=== PATIENT | female | born 2000 | race African-American/Black ===

== ENCOUNTER 2022-05-13 16:20 | Emergency (ER) | payer SELFPAY ==
--- NOTE | 2022-05-13 17:23 | EDPHYS ---
Physician Documentation [facility] Name: Anita Alvarado Age: 21 yrs Sex: Female : 2000 Arrival Date: 05/13/2022 Time: 16:23 Bed 16 Private MD: ED Physician Mega Fitzgerald HPI: 05/13 17:20 This 21 yrs old Black Female presents to ER via Ambulatory with complaints of Foreign snw body In Vagina, InQuicker 1630. 17:20 The patient presents with foreign body x several hours. Onset: The symptoms/episode snw began/occurred gradually. Modifying factors: The symptoms are alleviated by nothing, the symptoms are aggravated by nothing. Severity of symptoms: At their worst the symptoms were moderate. The patient is not sexually active. The patient has not experienced similar symptoms in the past. The patient has not recently seen a physician. 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 - Social history:: Smoking status: Patient denies any tobacco usage or history of. ROS: 17:18 Constitutional: Negative for fever, chills, and weight loss, Eyes: Negative for injury, snw pain, redness, and discharge, ENT: Negative for injury, pain, and discharge, Neck: Negative for injury, pain, and swelling, Cardiovascular: Negative for chest pain, palpitations, and edema, Respiratory: Negative for shortness of breath, cough, wheezing, and pleuritic chest pain, Abdomen/GI: Negative for abdominal pain, nausea, vomiting, diarrhea, and constipation, Back: Negative for injury and pain, : Negative for injury, discharge, and swelling, pt with menstrual cup in vagina MS/Extremity: Negative for injury and deformity, Skin: Negative for injury, rash, and discoloration, Neuro: Negative for headache, weakness, numbness, tingling, and seizure, Psych: Negative for depression, anxiety, suicide ideation, homicidal ideation, and hallucinations. Exam: 17:18 Constitutional: This is a well developed, well nourished patient who is awake, alert, snw and in no acute distress. Head/Face: Normocephalic, atraumatic. Eyes: Pupils equal round and reactive to light, extra-ocular motions intact. Lids and lashes normal. Conjunctiva and sclera are non-icteric and not injected. Cornea within normal limits. Periorbital areas with no swelling, redness, or edema. ENT: Nares patent. No nasal discharge, no septal abnormalities noted. Tympanic membranes are normal and external auditory canals are clear. Oropharynx with no redness, swelling, or masses, exudates, or evidence of obstruction, uvula midline. Mucous membranes moist. Neck: Trachea midline, no thyromegaly or masses palpated, and no cervical lymphadenopathy. Supple, full range of motion without nuchal rigidity, or vertebral point tenderness. No Meningismus. Chest/axilla: Normal chest wall appearance and motion. Nontender with no deformity. No lesions are appreciated. Cardiovascular: Regular rate and rhythm with a normal S1 and S2. No gallops, murmurs, or rubs. Normal PMI, no JVD. No pulse deficits. Respiratory: Lungs have equal breath sounds bilaterally, clear to auscultation and percussion. No rales, rhonchi or wheezes noted. No increased work of breathing, no retractions or nasal flaring. Abdomen/GI: Soft, non-tender, with normal bowel sounds. No distension or tympany. No guarding or rebound. No evidence of tenderness throughout. Back: No spinal tenderness. No costovertebral tenderness. Full range of motion. Pelvic Exam: Normal external genitalia. Speculum exam with closed cervical os, no discharge. Menses, pt used a menstral cup and it became stuck. Normal uterus, pt has not ever had intercourse Skin: Warm, dry with normal turgor. Normal color with no rashes, no lesions, and no evidence of cellulitis. MS/ Extremity: Pulses equal, no cyanosis. Neurovascular intact. Full, normal range of motion. Neuro: Awake and alert, GCS 15, oriented to person, place, time, and situation. Cranial nerves II-XII grossly intact. Motor strength 5/5 in all extremities. Sensory grossly intact. Cerebellar exam normal. Normal gait. Psych: Awake, alert, with orientation to person, place and time. Behavior, mood, and affect are within normal limits. Vital Signs: 16:41 BP 141 / 79; Pulse 87; Resp 16 S; Temp 97.5(TE); Pulse Ox 98% on R/A; Weight 56.7 kg aa5 (R); Height 5 ft. 1 in. (154.94 cm) (R); 16:41 Body Mass Index 23.62 (56.70 kg, 154.94 cm) aa5 MDM: 16:33 Patient medically screened. snw 17:21 Data reviewed: vital signs, nurses notes. Data interpreted: Pulse oximetry: on room air snw is 98 %. Interpretation: normal. Counseling: I had a detailed discussion with the patient and/or guardian regarding: the historical points, exam findings, and any diagnostic results supporting the discharge/admit diagnosis, the presence of at least one elevated blood pressure reading (>120/80) during this emergency department visit, the need for outpatient follow up, to return to the emergency department if symptoms worsen or persist or if there are any questions or concerns that arise at home. Response to treatment: the patient's symptoms have markedly improved after treatment. Administered Medications: No medications were administered Disposition: 05/14 11:17 Co-signature as Attending Physician, Mega Fitzgerald DO I agree with the assessment and ms3 plan of care. Attestation: The patient's history, exam findings, diagnostics, and a summary of any interventions or procedures was reviewed in detail with Lavonne POTTER. Disposition Summary: 05/13/22 17:22 Discharge Ordered Location: Home snw Condition: Stable snw Diagnosis - Foreign body in vulva and vagina snw Followup: snw - With: Emergency Department - When: As needed - Reason: Worsening of condition Followup: snw - With: Private Physician - When: As needed - Reason: Recheck today's complaints, Continuance of care, Re-evaluation by your physician Discharge Instructions: - Discharge Summary Sheet snw - Vaginal Foreign Body, [id number] snw Forms: - Medication Reconciliation Form snw - Thank You Letter snw - Antibiotic Education snw - Prescription Opioid Use snw Signatures: Lavonne Galvin FNP-C FNP-Csnw Afia Barlow, RN RN aa5 Mega Fitzgerald DO DO ms3
--- NOTE | 2022-05-13 17:23 | ER ---
Nurse's Notes [facility] Name: Anita Alvarado Age: 21 yrs Sex: Female : 2000 Arrival Date: 05/13/2022 Time: 16:23 Bed 16 Private MD: Diagnosis: Foreign body in vulva and vagina Presentation: 05/13 16:41 Chief complaint: Patient states: Unable to remove Menstrual cup from vagina, pt states aa5 "the cup kind of tilted so I am not able to take it out". Pt denies pain. Coronavirus screen: At this time, the client does not indicate any symptoms associated with coronavirus-19. Ebola Screen: No symptoms or risks identified at this time. Initial Sepsis Screen: Does the patient meet any 2 criteria? No. Patient's initial sepsis screen is negative. Does the patient have a suspected source of infection? No. Patient's initial sepsis screen is negative. Risk Assessment: Do you want to hurt yourself or someone else? Patient reports no desire to harm self or others. Onset of symptoms was April 2022. 16:41 Acuity: TONY 4 aa5 16:41 Method Of Arrival: Ambulatory aa5 Triage Assessment: 17:30 General: Appears in no apparent distress. Behavior is calm, cooperative. 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 - Social history:: Smoking status: Patient denies any tobacco usage or history of. Screenin:55 Abuse screen: Denies threats or abuse. Denies injuries from another. Nutritional iw screening: No deficits noted. Tuberculosis screening: No symptoms or risk factors identified. Fall Risk None identified. Assessment: 17:30 General: Appears in no apparent distress. comfortable. Pain: Denies pain. Neuro: Level iw of Consciousness is awake, alert, obeys commands, Oriented to person, place, time, situation, Moves all extremities. Full function. Cardiovascular: Capillary refill < 3 seconds in bilateral fingers Patient's skin is warm and dry. Respiratory: Respiratory effort is even, unlabored, Respiratory pattern is regular, symmetrical. Derm: Skin is intact, is healthy with good turgor. Musculoskeletal: Range of motion: intact in all extremities. Vital Signs: 16:41 BP 141 / 79; Pulse 87; Resp 16 S; Temp 97.5(TE); Pulse Ox 98% on R/A; Weight 56.7 kg aa5 (R); Height 5 ft. 1 in. (154.94 cm) (R); 16:41 Body Mass Index 23.62 (56.70 kg, 154.94 cm) aa5 ED Course: 16:23 Patient arrived in ED. as 16:28 Lavonne Galvin FNP-C is PHCP. snw 16:28 Mega Fitzgerald DO is Attending Physician. snw 16:40 Arm band placed on. aa5 16:42 Triage completed. aa5 17:30 Patient has correct armband on for positive identification. iw 17:55 Saira Lao, RN is Primary Nurse. iw 17:55 Assist provider with foreign body removal of menstrual cup from vagina. Patient did not iw have IV access during this emergency room visit. Administered Medications: No medications were administered Medication: 17:30 VIS not applicable for this client. iw Outcome: 17:22 Discharge ordered by MD. snw 17:55 Discharged to home ambulatory. iw 17:55 Condition: good 17:55 Discharge instructions given to patient, Instructed on discharge instructions, follow up and referral plans. Demonstrated understanding of instructions, follow-up care. 17:56 Patient left the ED. iw Signatures: Lavonne Galvin FNP-C SENIOR SYSTEM OPERATOR-Csnw Malinda Campbell as Saira Lao, ULI MCNALLY iw Afia Barlow RN RN aa5 Corrections: (The following items were deleted from the chart) 05/14 07:11 08 17:55 No provider procedures requiring assistance completed. iw iw
[2022-05-13 19:22] VITALS: BP 141/79; TEMP 97.5; O2SAT 98
== END 2022-05-13 17:56 | disposition home or self-care (01) ==
LOC: ER 16:20
DX: T19.2XXA Foreign body in vulva and vagina, initial encounter (principal)
CPT/HCPCS: 99283

== ENCOUNTER 2024-11-02 01:05 | Emergency (ER) | payer OTHER, SELFPAY ==
--- OUTSIDE RECORDS SUMMARY | 2024-11-02 01:07 | XMS REPORT | Continuity of Care Document ---
Author Name Unknown Address [address] [facility] [address] th[address] Address [address] [facility] 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 Ordering Clinician Indication Dosage Frequency Signature (SIG) Comments Components Source TAKE 1 TABLET TWICE DAILY WITH FOOD. 06-14 00:00: 00 Yes [id number] [place] Angela Immunizations Ordered Immunization Name Filled Immunization Name Date Status Comments Source Hep B, adult Hep B, adult 2022-04-16 00:00:00 Leonides Angela MMR MMR 2022-01-14 00:00:00 Leonides Angela meningococcal MCV4P meningococcal MCV4P 00:00:00 Leonides Angela Hep B, adult Hep B, adult 2021-10-09 00:00:00 Completed [place]on Angela Tdap Tdap 2021-09-14 00:00:00 Leonides Angela Hep B, adolescent or ped Hep B, adolescent or ped 2021-09-14 00:00:00 Leonides Angela Vital Signs Vital Name Observation Time Observation Value Comments S ourjesus Height Measured 2024-10-03 16:38:00 61.40 inches Easton Angela Body Temperature 2024-10-03 16:38:00 97.60 degrees [place]on Angela Heart Rate 2024-10-03 16:38:00 83.00 /min Astrid en F Julio César Respiratory Rate 2024-10-03 16:38:00 14.00 /min Easton F Julio César BP Systolic 2024-10-03 16:38:00 127 mm[Hg] Step hen F Julio César BP Diastolic 2024-10-03 16:38:00 79 mm[Hg] Yao phen F Julio César Weight Measured 2024-10-03 16:38:00 136.00 pounds Easton F Julio César BP Systolic 2023-06-14 17:15:00 117 mm[Hg] Step hen F Julio César BP Diastolic 2023-06-14 17:15:00 74 mm[Hg] Yao phen F Julio César Weight Measured 2023-06-14 17:15:00 139.20 pounds Easton F Julio César Height Measured 2023-06-14 17:15:00 61.42 inches Easton F Julio César Body Temperature 2023-06-14 17:15:00 97.30 degrees Easton F Julio César Heart Rate 2023-06-14 17:15:00 88.00 /min Astrid en F Julio César Respiratory Rate 2023-06-14 17:15:00 Easton F Julio César BP Systolic 2023-02-22 09:32:00 117 mm[Hg] Step hen F Julio César BP Diastolic 2023-02-22 09:32:00 75 mm[Hg] Yao phen F Julio César Weight Measured 2023-02-22 09:32:00 130.40 pounds Easton F Julio César Height Measured 2023-02-22 09:32:00 61.42 inches Easton F Julio César Body Temperature 2023-02-22 09:32:00 97.80 degrees Easton F Julio César Heart Rate 2023-02-22 09:32:00 76.00 /min Astrid en F Julio César Respiratory Rate 2023-02-22 09:32:00 Easton F Julio César Encounters Start Date/Time End Date/Time Encounter Type Admission Type Attending [facility] Care Department Encounter ID Source 2024-10-03 16:28:48 2024-10-03 16:28:48 Outpatient [facility] [id number] [place]on Angela 2024-10-03 00:00:00 2024-10-03 00:00:00 Outpatient Visit [facility] [id number] [place]on Angela 2024-09-04 14:36:28 2024-09-04 14:36:28 Outpatient [facility] [id number] Easton Angela 2023-07-15 00:00:00 2023-07-15 00:00:00 Outpatient [email or web address] [facility] [id number] [facility] 2023-06-14 17:07:48 2023-06-14 17:07:48 Outpatient [facility] [id number] Easton Angela 2023-02-22 09:32:17 2023-02-22 09:32:17 Outpatient [facility] [id number] Easton Angela Results Test Description Test Time Test Comments Results Result Co mments Source PAP TEST, THINPREP, [id number] 10:11:18* Test Item Value Reference Range Interpretation Comme nts SOURCE: (test code = 8001) Cervical/Endo cervical SLIDES: (test code = 8011) 1 LMP: (test code = 8021) 02/07/2023 SPECIMEN ADEQUACY: (test code = 68756) (NOTE) Satisfactory for evaluation. Endocervical cells/transformation zone component not identified. INTERPRETATION: (test code = 56528) NILM/NO EPITH. ABNORMALITY;S EE BELOW ---- NEGATIVE FOR INTRAEPITHELIAL LESION OR MALIGNANCY (NILM) - IT TECHNICAL ARCHITECT: (test code = 8101) Amy RogerAK( CP)IAC LOCATION: (test code = 13188) (NOTE) Specimens proces sed and interpreted at [facility], [address] [place] [address], , CLIA: [id number] CPT: (test code = 8140) (NOTE) 16305 UNLESS OTH ERWISE INDICATED, COMPUTER AIDED AND IT TECHNICAL ARCHITECT SCREENING PERFORMED. The Pap test is a screening test with an inherent, but low probability of error. Your patient should be reminded to consult you immediately if she experiences any suspicious signs or symptoms, regardless of her Pap test result. An alternate report format containing images or consolidated prior Pap history is available as applicable. HPV HIGH IF ABNORMAL [id number] 10:11:18* Test Item Value Reference Range Interpretation Comme nts HPV HIGH IF ABNORMAL THINPREP (test code = 75069) CRITERIA NOT MET UNLESS OTHERWIS E INDICATED, ALL TESTING PERFORMED AT [facility] [address] [place] [address] CALL CENTER SUPERVISOR: GEORGE LEUNG M.D. CLIA NUMBER [id number] [facility] [place]. [id number] PAP TEST, THINPREP, [id number] 00:00:00* Test Item Value Reference Range Interpretation Comme nts SOURCE: (test code = 8001) Cervical/Endocervical SLIDES: (test code = 8011) 1 LMP: (test code = 8021) 02/07/2023 SPECIMEN ADEQUACY: (test code = 65073) (NOTE) INTERPRETATION: (test code = 38308) NILM/NO EPITH. ABNORMALITY;SEE BELOW IT TECHNICAL ARCHITECT: (test code = 8101) [place], [place](ASCP)IAC LOCATION: (test code = 17264) (NOTE) CPT: (test code = 8140) (NOTE) [facility] AngelaVAGINAL PATHOGENS DNA [id number] 00:00:00* Test Item Value Reference Range Interpretation Comme nts MUNA SPECIES (test code = 79768) NEGATIVE G. VAGINALIS (test code = 70869) NEGATIVE T. VAGINALIS (test code = 01238) NEGATIVE Easton AngelaHPV HIGH IF ABNORMAL [id number] 00:00:00* Test Item Value Reference Range Interpretation Comme nts HPV HIGH IF ABNORMAL THINPREP (test code = 60190) CRITERIA NOT MET PDFE (test code = PDFReport) PDF Easton Angela Notes Date/Time Note Provider Source Easton Angela Pending Sale To [facility]
[2024-11-02] MEDS ORDERED: MORPHINE 4 MG/ML SYR ONE (01:33)
[2024-11-02] MEDS ORDERED: METHOCARBAMOL 1,000 MG/10 ML VIAL ONE (01:33)
[2024-11-02] MEDS ORDERED: ONDANSETRON 4 MG/2 ML VIAL ONE (01:33)
[2024-11-02] MEDS ORDERED: KETOROLAC 30 MG/ML INJ ONE (01:33)
[2024-11-02] MEDS ORDERED: NA CHLORIDE 0.9% 1,000 ML ONE (01:33)
[2024-11-02] MEDS ORDERED: DIPHENHYDRAMINE 50 MG/ML VIAL ONE (01:33)
[2024-11-02] MEDS ORDERED: NA CHLORIDE 0.9% 100 ML ONE (01:34)
[2024-11-02 02:02] LABS: Absolute Eosinophils 0.3 K/uL (0-0.5); Absolute Lymphocytes (CBC) 1.9 K/uL (0.7-4.9); Absolute Monocytes 0.9 K/uL (0.1-1.3); Absolute Neutrophil 4.2 K/uL (1.8-8.0); Basophils % 0.4 % (0-1.3); Eosinophils % 3.6 % (0-4.4); Hematocrit 33.8 % (36.0-45.0); Hemoglobin 11.1 g/dL (12.0-15.0); Lymphocytes % 25.5 % (15.3-44.8); MCH 27.1 pg (27.0-35.0); MCHC 32.7 g/dL (32.0-36.0); MCV 82.7 fL (80-100); Monocytes % 12.8 % (3.3-12.3); Neutrophils % 57.7 % (41.7-73.7); Platelets 326 thou/uL (152-406); RBC Red Blood Cell Count 4.09 M/uL (3.86-4.86); Red Cell Distribution Width 14.9 % (12.1-15.2)
[2024-11-02 02:10] LABS: Albumin 3.4 g/dL (3.4-5.0); Albumin/Globulin Ratio 0.8 (1.1-1.8); Anion Gap 7.8 mEq/L (5.0-15.0); Bilirubin Total 0.2 mg/dL (0.2-1.0); Globulin 4.4 g/dL (2.3-3.5); Potassium 3.8 mEq/L (3.5-5.1); Protein, Total 7.8 g/dL (6.4-8.2)
[2024-11-02 02:21] LABS: Specific Gravity 1.023 (1.005-1.030)
--- NOTE | 2024-11-02 04:13 | RAD REPORT ---
EXAM: CT Head Without Intravenous Contrast CLINICAL HISTORY: The patient is 24 years old and is Female; neck and head ache TECHNIQUE: Axial computed tomography images of the head/brain without intravenous contrast. Sagit anthony and coronal reformatted images were created and reviewed. This CT exam was performed using one or more of the following dose reduction techniques: automated exposure control, adjustment of t he mA and/or kV according to patient size, and/or use of iterative reconstruction technique. COMPARISON: No relevant prior studies available. FINDINGS: Brain: Unremarkable. No hemorrhage. No significant white matter disease. No edema. Ventricles: Unremarkable. No ventriculomegaly. Bones/joints: Unremarkable. No acute skull fracture. Soft tissues: Unremarkable. Sinuses: Unremarkable as visualized. No acute sinusitis. Mastoid air cells: No significant mastoid fluid. IMPRESSION: No acute intracranial findings. No hemorrhage. Electronically signed by: Marie Pina MD 11/02/2024 04:09 AM [facility] V2 Due to temporary technical issues with the PACS/GOOM reporting system, reports are being handy d by the in-house radiologist without review as a courtesy to ensure prompt reporting the interpreting radiologist is fully responsible for the content of the report. Transcribed Date/Time: 11/02/2024 4:12 AM
--- NOTE | 2024-11-02 04:34 | RAD REPORT ---
EXAM: Soft Tissue Neck W/Contr CT Neck Soft Tissues With Contrast HISTORY: Neck Pain COMPARISON: None TECHNIQUE: Neck Soft Tissues axial images acquired with IV contrast. Coronal and sagittal reformats c reated. Exam performed according to departmental dose-optimization program which includes automated exposure control, adjustment of mA and/or kV according to patient size, and/or use of iterative recon struction technique. FINDINGS: No evidence of neck mass. Naso-, lius-, and hypopharynx unremarkable. Epiglottis unremarkable. Thyroid, submandibular, and parotid glands unremarkable. No significantly enlarged cervical lymph nodes. Bones unremarkable. IMPRESSION: Unremarkable CT neck soft tissues with contrast Electronically signed by: Carroll Shepard MD 11/02/2024 04:28 AM [facility] Due to temporary technical issues with the PACS/PacketHop reporting system, reports are being handy d by the in-house radiologist without review as a courtesy to ensure prompt reporting the interpreting radiologist is fully responsible for the content of the report. Transcribed Date/Time: 11/02/2024 4:34 AM
[2024-11-02] MEDS ORDERED: HYDROCODONE/APAP 5/325 MG TAB ONE ×2 (04:44→04:48)
--- NOTE | 2024-11-02 04:44 | EDPHYS ---
Physician Documentation [facility] Name: Anita Alvarado Age: 24 yrs Sex: Female : 2000 Arrival Date: 11/02/2024 Time: 01:05 Bed 2 Private MD: ED Physician Terrence Johnson HPI: 11/02 01:21 This 24 yrs old Black Female presents to ER via Ambulatory with complaints of Stiff sp4 Neck, Neck and Upper Back Pain. 11/03 03:42 24-year-old female presents with complaint of neck stiffness and upper back pain., . 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 - Infectious Disease History:: Denies. - Social history:: Smoking status: Patient denies any tobacco usage or history of. Patient/guardian denies using alcohol, street drugs. - Family history:: not pertinent. ROS: 11/03 03:42 Constitutional: Negative for fever, chills, and weight loss, positive neck stiffness sp4 positive neck pain positive upper back pain All other systems are negative, Exam: 03:42 Constitutional: This is a well developed, well nourished patient who is awake, alert, sp4 and in no acute distress. Head/Face: Normocephalic, atraumatic. Eyes: Pupils equal round and reactive to light, extra-ocular motions intact. Lids and lashes normal. Conjunctiva and sclera are not injected. Cornea within normal limits. Periorbital areas with no swelling, redness, or edema. ENT: Nares patent. No nasal discharge, no septal abnormalities noted. Tympanic membranes are normal and external auditory canals are clear. Oropharynx with no redness, swelling, or masses, exudates, or evidence of obstruction, uvula midline. Mucous membranes moist. Neck: Trachea midline, no thyromegaly or masses palpated, and no cervical lymphadenopathy. Supple, full range of motion without nuchal rigidity, or vertebral point tenderness. Chest/axilla: Normal chest wall appearance and motion. Nontender with no deformity. No lesions are appreciated. Cardiovascular: Regular rate and rhythm with a normal S1 and S2. No gallops, murmurs, or rubs. Normal PMI, no JVD. No pulse deficits. Respiratory: Lungs have equal breath sounds bilaterally, clear to auscultation and percussion. No rales, rhonchi or wheezes noted. No increased work of breathing, no retractions or nasal flaring. Abdomen/GI: Soft, with normal bowel sounds. No distension or tympany. No guarding or rebound. No evidence of tenderness throughout. Back: No spinal tenderness. No costovertebral tenderness. Skin: Warm, dry with normal turgor. Normal color with no rashes, no lesions, and no evidence of cellulitis. MS/ Extremity: Pulses equal, no cyanosis. Neurovascular intact. Full, normal range of motion. Neuro: Awake and alert, GCS 15, oriented to person, place, time, and situation. Cranial nerves II-XII grossly intact. Motor strength 5/5 in all extremities. Sensory grossly intact. Psych: Awake, alert, with orientation to person, place and time. Behavior, mood, and affect are within normal limits Vital Signs: 11/02 01:20 BP 137 / 91; Pulse 91; Resp 20; Temp 97.4; Pulse Ox 98% ; Weight 59.87 kg; Height 5 ft. bm8 1 in. ; Pain 8/10; 03:41 BP 113 / 75; Pulse 76; Resp 16; Temp 97.4; Pulse Ox 100% ; Pain 0/10; bm8 04:39 BP 112 / 71; Pulse 82; Resp 18; Temp 97.4; Pulse Ox 100% ; Pain 0/10; bm8 01:20 Body Mass Index 24.94 (59.87 kg, 154.94 cm) bm8 01:20 Pain Scale: Adult bm8 03:41 Pain Scale: Adult bm8 04:39 Pain Scale: Adult bm8 [place] Coma Score: 01:38 Eye Response: spontaneous(4). Motor Response: obeys commands(6). Verbal Response: bm8 oriented(5). Total: 15. 03:41 Eye Response: spontaneous(4). Motor Response: obeys commands(6). Verbal Response: bm8 oriented(5). Total: 15. 04:39 Eye Response: spontaneous(4). Motor Response: obeys commands(6). Verbal Response: bm8 oriented(5). Total: 15. 11/03 03:42 Eye Response: spontaneous(4). Motor Response: obeys commands(6). Verbal Response: sp4 oriented(5). Total: 15. MDM: 11/02 02:23 Medical Screening Exam initiated sp4 04:18 ED course: EXAM: CT Head Without Intravenous Contrast CLINICAL HISTORY: The patient is sp4 24 years old and is Female; neck and head ache TECHNIQUE: Axial computed tomography images of the head/brain without intravenous contrast. Sagittal and coronal reformatted images were created and reviewed. This CT exam was performed using one or more of the following dose reduction techniques: automated exposure control, adjustment of the mA and/or kV according to patient size, and/or use of iterative reconstruction technique. COMPARISON: No relevant prior studies available. FINDINGS: Brain: Unremarkable. No hemorrhage. No significant white matter disease. No edema. Ventricles: Unremarkable. No ventriculomegaly. Bones/joints: Unremarkable. No acute skull fracture. Soft tissues: Unremarkable. Sinuses: Unremarkable as visualized. No acute sinusitis. Mastoid air cells: No significant mastoid fluid. IMPRESSION: No acute intracranial findings. No hemorrhage. . 04:38 ED course: EXAM: Soft Tissue Neck W/Contr CT Neck Soft Tissues With Contrast HISTORY: sp4 Neck Pain COMPARISON: None TECHNIQUE: Neck Soft Tissues axial images acquired with IV contrast. Coronal and sagittal reformats created. Exam performed according to departmental dose-optimization program which includes automated exposure control, adjustment of mA and/or kV according to patient size, and/or use of iterative reconstruction technique. FINDINGS: No evidence of neck mass. Naso-, luis-, and hypopharynx unremarkable. Epiglottis unremarkable. Thyroid, submandibular, and parotid glands unremarkable. No significantly enlarged cervical lymph nodes. Bones unremarkable. IMPRESSION: Unremarkable CT neck soft tissues with contrast. 04:41 Differential diagnosis: arthritis, Cervical Raiculopathy Cervical Spondylosis cervical sp4 strain, Whiplash Injury. Data reviewed: vital signs, nurses notes, lab test result(s), radiologic studies, CT scan. Consideration of Admission/Observation Escalation of care including admission/observation considered. ED course: Pain is improved after medications. Patient has normal CAT scans normal neurologic exam. Patient stable for discharge home with p.o. Naprosyn and Robaxin. 11/02 01:22 Order name: Test, Urine; Complete Time: 04:18 sp4 11/02 01:22 Order name: CBC with Diff; Complete Time: 04:18 sp4 11/02 01:22 Order name: CMP; Complete Time: 04:18 sp4 11/02 02:23 Order name: CT Soft Tissue Neck W/contr; Complete Time: 04:38 sp4 11/02 02:23 Order name: CT Head Brain wo Cont; Complete Time: 04:18 sp4 11/02 01:22 Order name: IV Saline Lock; Complete Time: 01:38 sp4 11/02 01:22 Order name: Labs collected and sent; Complete Time: :38 sp4 Administered Medications: 02:08 Drug: TORadol - Ketorolac IVP 15 mg IVP once Route: IVP; Site: left antecubital; bm8 03:00 Follow up: Response: No adverse reaction bm8 02:08 Drug: Ondansetron IVP 4 mg IVP once; over 2 minutes Route: IVP; Site: left antecubital; bm8 03:00 Follow up: Response: No adverse reaction bm8 02:08 Drug: NS 0.9% IV 1000 ml IV at 1 bolus Per protocol; to be given as a bolus over 60 bm8 minutes Route: IV; Rate: 1 bolus; Site: left antecubital; 03:00 Follow up: Response: No adverse reaction; IV Status: Completed infusion; IV Intake: bm8 1000ml 02:08 Drug: diphenhydrAMINE IVP 25 mg IVP once Route: IVP; Site: left antecubital; bm8 02:59 Follow up: Response: No adverse reaction bm8 02:08 Drug: Methocarbamol IVPB 1 grams IVPB once over 1 hrs; (mix in NS 100 mL) Route: IVPB; bm8 Infused Over: 1 hrs; Site: left antecubital; 02:59 Follow up: Response: No adverse reaction; IV Status: Completed infusion; IV Intake: bm8 100ml 02:09 Drug: morphine IVP or IV 4 mg IVP once over 4 mins Route: IVP; Infused Over: 4 mins; bm8 Site: left antecubital; 03:00 Follow up: Response: No adverse reaction bm8 04:56 Drug: HYDROcodone-acetaminophen PO 5 mg-325 mg 2 tabs PO once Route: PO; bm8 04:57 Follow up: Response: Medication Administered at Departure bm8 04:56 Drug: Promethazine PO 25 mg PO once Route: PO; bm8 04:56 Follow up: Response: Medication Administered at Departure bm8 04:56 Drug: Ibuprofen PO 800 mg PO once Route: PO; bm8 04:56 Follow up: Response: Medication Administered at Departure bm8 Disposition: 11/03 03:44 Chart complete. sp4 Disposition Summary: 11/02/24 04:43 Discharge Ordered Notes: Location: Home sp4 Problem: new sp4 Symptoms: have improved sp4 Condition: Stable sp4 Diagnosis - Unspecified symptoms and signs involving the musculoskeletal system sp4 - Acute musculoskeletal neck pain sp4 Followup: sp4 - With: Private Physician - When: 7 - 10 days - Reason: Recheck today's complaints Discharge Instructions: - Discharge Summary Sheet sp4 - Cervical Sprain, [id number] sp4 Forms: - Work release form sp4 - Patient Portal Instructions sp4 Prescriptions: - naproxen 500 mg Oral tablet - take 1 tablet ORAL route every 12 hours as needed for pain; 50 tablet; Refills: sp4 0, Product Selection Permitted - methocarbamol 750 mg Oral tablet - take 2 tablets ORAL route every 8 hours for 2 days PRN muscular pain; 60 sp4 tablet; Refills: 0, Product Selection Permitted Signatures: Dispatcher [employer] EDTerrence Leslie MD MD sp4 Reed Thomas RN RN bm8 Corrections: (The following items were deleted from the chart) 11/02 02:23 02:23 Soft Tissue Neck W/Contr+[id number] ordered. EDMS EDMS
--- NOTE | 2024-11-02 04:44 | ER ---
Nurse's Notes [facility] Name: Anita Alvarado Age: 24 yrs Sex: Female : 2000 Arrival Date: 11/02/2024 Time: 01:05 Bed 2 Private MD: Diagnosis: Unspecified symptoms and signs involving the musculoskeletal system;Acute musculoskeletal neck pain Presentation: 11/02 01:20 Chief complaint: Patient states: I have had severe neck pain since yesterday morning. I bm8 think I slept wrong but i cant get this pain to go away. Coronavirus screen: At this time, the client does not indicate any symptoms associated with coronavirus-19. Ebola Screen: Patient negative for fever greater than or equal to 101.5 degrees Fahrenheit, and additional compatible Ebola Virus Disease symptoms Patient denies exposure to infectious person. Patient denies travel to an Ebola-affected area in the 21 days before illness onset. No symptoms or risks identified at this time. Acute neurological deficit: none identified. Initial Sepsis Screen: Does the patient meet any 2 criteria? No. Patient's initial sepsis screen is negative. Does the patient have a suspected source of infection? No. Patient's initial sepsis screen is negative. Risk Assessment: Do you want to hurt yourself or someone else? Patient reports no desire to harm self or others. Onset of symptoms was October 31, 2024. 01:20 Method Of Arrival: Ambulatory bm8 01:20 Acuity: TONY 3 bm8 Triage Assessment: 01:21 General: Appears in no apparent distress. uncomfortable, Behavior is calm, cooperative, bm8 appropriate for age. Pain: Complains of pain in scalp, left trapezius and right trapezius Pain currently is 8 out of 10 on a pain scale. Quality of pain is described as aching, throbbing, Pain began 2-3 days ago. EENT: No deficits noted. No signs and/or symptoms were reported regarding the EENT system. Neuro: No deficits noted. Level of Consciousness is awake, alert, obeys commands, Oriented to person, place, time, situation, Appropriate for age. Cardiovascular: Denies chest pain, Capillary refill < 3 seconds in bilateral fingers Patient's skin is warm and dry. Respiratory: Airway is patent Respiratory effort is even, unlabored, Respiratory pattern is regular, symmetrical, Breath sounds are clear. GI: No signs and/or symptoms were reported involving the gastrointestinal system. : No signs and/or symptoms were reported regarding the genitourinary system. Derm: No signs and/or symptoms reported regarding the dermatologic system. Musculoskeletal: Reports pain in left trapezius and right trapezius. 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 - Infectious Disease History:: Denies. - Social history:: Smoking status: Patient denies any tobacco usage or history of. Patient/guardian denies using alcohol, street drugs. - Family history:: not pertinent. Screenin:38 [facility] ED Fall Risk Assessment (Adult) History of falling in the last 3 months, bm8 including since admission No falls in past 3 months (0 pts) Confusion or Disorientation No (0 pts) Intoxicated or Sedated No (0 pts) Impaired Gait No (0 pts) Mobility Assist Device Used No (0 pt) Altered Elimination No (0 pt) Score/Fall Risk Level 0 - 2 = Low Risk Oriented to surroundings, Maintained a safe environment, Educated pt \T\ family on fall prevention, incl call for assistance when getting out of bed, Assessed \T\ reinforced patient's understanding of fall precautions, Hourly rounding (assess needs \T\ fall precautionary measures) done, Used ambulatory aids as needed (educated on \T\ assisted with), Used gait belt as appropriate. Abuse screen: Denies threats or abuse. Nutritional screening: No deficits noted. Tuberculosis screening: No symptoms or risk factors identified. Assessment: 01:38 Neuro: No deficits noted. bm8 03:41 Reassessment: Patient appears in no apparent distress at this time. Patient and/or bm8 family updated on plan of care and expected duration. Pain level reassessed. Patient is alert, oriented x 3, equal unlabored respirations, skin warm/dry/pink. Patient denies pain at this time. Patient states feeling better. Patient states symptoms have improved. Neuro: No deficits noted. 04:39 Reassessment: Patient appears in no apparent distress at this time. Patient and/or bm8 family updated on plan of care and expected duration. Pain level reassessed. Patient is alert, oriented x 3, equal unlabored respirations, skin warm/dry/pink. Patient denies pain at this time. Patient states feeling better. Patient states symptoms have improved. 04:56 Neuro: No deficits noted. Level of Consciousness is awake, alert, obeys commands, bm8 Oriented to person, place, time, situation, Appropriate for age. Vital Signs: 01:20 BP 137 / 91; Pulse 91; Resp 20; Temp 97.4; Pulse Ox 98% ; Weight 59.87 kg; Height 5 ft. bm8 1 in. ; Pain 8/10; 03:41 BP 113 / 75; Pulse 76; Resp 16; Temp 97.4; Pulse Ox 100% ; Pain 0/10; bm8 04:39 BP 112 / 71; Pulse 82; Resp 18; Temp 97.4; Pulse Ox 100% ; Pain 0/10; bm8 01:20 Body Mass Index 24.94 (59.87 kg, 154.94 cm) bm8 01:20 Pain Scale: Adult bm8 03:41 Pain Scale: Adult bm8 04:39 Pain Scale: Adult bm8 [place] Coma Score: 01:38 Eye Response: spontaneous(4). Motor Response: obeys commands(6). Verbal Response: bm8 oriented(5). Total: 15. 03:41 Eye Response: spontaneous(4). Motor Response: obeys commands(6). Verbal Response: bm8 oriented(5). Total: 15. 04:39 Eye Response: spontaneous(4). Motor Response: obeys commands(6). Verbal Response: bm8 oriented(5). Total: 15. 02/15 03:42 Eye Response: spontaneous(4). Motor Response: obeys commands(6). Verbal Response: sp4 oriented(5). Total: 15. ED Course: 11/02 01:07 Patient arrived in ED. [email or web address] 01:13 Reed Thomas, RN is Primary Nurse. bm8 01:21 Terrence Johnson MD is Attending Physician. sp4 01:21 Triage completed. bm8 01:21 Arm band placed on right wrist. bm8 01:38 Patient has correct armband on for positive identification. Placed in gown. Bed in low bm8 position. Call light in reach. Side rails up X 1. Adult w/ patient. Client placed on continuous cardiac and pulse oximetry monitoring. NIBP monitoring applied. Pulse ox on. NIBP on. Door closed. Noise minimized. Pillow given. Verbal reassurance given. Head of bed elevated. 01:38 No provider procedures requiring assistance completed. Initial lab(s) drawn, by , matthew sent to lab. Urine collected: clean catch specimen, clear. Inserted saline lock: 20 gauge in left antecubital area, using aseptic technique. Blood collected. Flushed with 10 mL NS. Patient maintains SpO2 saturation greater than 95% on room air. 03:03 CT Soft Tissue Neck W/contr In Process Unspecified. EDMS 03:03 CT Head Brain wo Cont In Process Unspecified. EDMS 04:39 Provided Education on: post er care. bm8 04:39 IV discontinued, intact, bleeding controlled, No redness/swelling at site. Pressure bm8 dressing applied. Administered Medications: 02:08 Drug: TORadol - Ketorolac IVP 15 mg IVP once Route: IVP; Site: left antecubital; bm8 03:00 Follow up: Response: No adverse reaction bm8 02:08 Drug: Ondansetron IVP 4 mg IVP once; over 2 minutes Route: IVP; Site: left antecubital; bm8 03:00 Follow up: Response: No adverse reaction bm8 02:08 Drug: NS 0.9% IV 1000 ml IV at 1 bolus Per protocol; to be given as a bolus over 60 bm8 minutes Route: IV; Rate: 1 bolus; Site: left antecubital; 03:00 Follow up: Response: No adverse reaction; IV Status: Completed infusion; IV Intake: bm8 1000ml 02:08 Drug: diphenhydrAMINE IVP 25 mg IVP once Route: IVP; Site: left antecubital; bm8 02:59 Follow up: Response: No adverse reaction bm8 02:08 Drug: Methocarbamol IVPB 1 grams IVPB once over 1 hrs; (mix in NS 100 mL) Route: IVPB; bm8 Infused Over: 1 hrs; Site: left antecubital; 02:59 Follow up: Response: No adverse reaction; IV Status: Completed infusion; IV Intake: bm8 100ml 02:09 Drug: morphine IVP or IV 4 mg IVP once over 4 mins Route: IVP; Infused Over: 4 mins; bm8 Site: left antecubital; 03:00 Follow up: Response: No adverse reaction bm8 04:56 Drug: HYDROcodone-acetaminophen PO 5 mg-325 mg 2 tabs PO once Route: PO; bm8 04:57 Follow up: Response: Medication Administered at Departure bm8 04:56 Drug: Promethazine PO 25 mg PO once Route: PO; bm8 04:56 Follow up: Response: Medication Administered at Departure bm8 04:56 Drug: Ibuprofen PO 800 mg PO once Route: PO; bm8 04:56 Follow up: Response: Medication Administered at Departure bm8 Medication: 01:38 VIS not applicable for this client. bm8 Intake: 02:59 IV: 100ml; Total: 100ml. bm8 03:00 IV: 1000ml; Total: 1100ml. bm8 Outcome: 04:43 Discharge ordered by . sp4 04:56 Discharged to home ambulatory, with family, bm8 04:56 Condition: good 04:56 Discharge instructions given to patient, family, Instructed on discharge instructions, follow up and referral plans. no drinking with medication, no driving heavy equipment, medication usage, safety practices, Demonstrated understanding of instructions, follow-up care, medications, Prescriptions given X 2, 04:57 Patient left the ED. bm8 Signatures: Dispatcher [employer] EDMary Cole [email or web address] Terrence Johnson MD MD sp4 Reed Thomas RN RN bm8 Corrections: (The following items were deleted from the chart) 01:38 01:38 General: Appears in no apparent distress. bm8 bm8
[2024-11-02] MEDS ORDERED: IBUPROFEN 400 MG TAB ONE (04:47)
[2024-11-02] MEDS ORDERED: PROMETHAZINE 25 MG TABLET ONE (04:47)
[2024-11-02 05:02] VITALS: TEMP 97.4
[2024-11-02 05:03] VITALS: O2SAT 100
[2024-11-02 05:05] VITALS: BP 112/71
== END 2024-11-02 04:57 | disposition home or self-care (01) ==
LOC: ER 01:05
DX: R29.91 Unspecified symptoms and signs involving the musculoskeletal system (principal); M54.9 Dorsalgia, unspecified
CPT/HCPCS: 96365; 85025; 36415; 81025; 80053; 70450; 70491; 96375; 99284; Q9967; Q0169; J1200; J2405; J2800; J7030